=== PATIENT | male | born 2000 | race Caucasian/White ===

== ENCOUNTER 2023-07-26 01:33 | Emergency (ER) | payer BC ==
[~2023-07-26] VITALS: Ht 177.8 cm; Wt 78.0 kg
[2023-07-26 01:44] VITALS: BP_SYST 134; PULSE 65; RESP 20; TEMP 97.5; O2SAT 99
[2023-07-26 02:20] VITALS: BP_SYST 134; PULSE 65; RESP 20; TEMP 97.5; O2SAT 99
== END 2023-07-26 02:19 | disposition home or self-care (01) ==
LOC: SED 01:33
DX: S05.32XA Ocular laceration without prolapse or loss of intraocular tissue, left eye, initial encounter (principal); R03.0 Elevated blood-pressure reading, without diagnosis of hypertension; F12.90 Cannabis use, unspecified, uncomplicated; J45.909 Unspecified asthma, uncomplicated; Y04.0XXA Assault by unarmed brawl or fight, initial encounter; Y93.89 Activity, other specified; Y92.89 Other specified places as the place of occurrence of the external cause; Y99.8 Other external cause status
CPT/HCPCS: 99282; 99283